=== PATIENT | male | born 2000 | race Caucasian/White ===

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

== ENCOUNTER 2019-01-19 21:28 | Emergency (ER) ==
[~2019-01-19] VITALS: Ht 172.7 cm; Wt 68.0 kg
--- NOTE | 2019-01-19 21:43 | NUR ---
PATIENT CAME IN , AMBULATED TO BED C/O PAIN/EDEMA TO LEFT FOOT/ANKLE. SEEN BY DIRECTOR TEEN POST, MU, PATIENT TWISTED ANKLE WHILE RUNNING C/O PAIN 04/08. PT RECEIVED ICE PACK. ELEVATED LEFT FOOT ON PILLOW.
[2019-01-19] MEDS ORDERED: IBUPROFEN 600 MG TABLET PO ONE ×2 (21:54→22:00)
--- NOTE | 2019-01-19 23:15 | NUR ---
Patient discharged to home in stable condition. Written and verbal after care instructions given. Patient verbalizes understanding of instruction. PT REC'D AND TIMO WRAP TO LT FOOT/ANKLE AND CRUTCHES. Crutches dispensed. Pt instructed on proper use of crutches. Patient able to demonstrate correct use of crutches. PT IS DRIVING HOME, BUT WANTS AN ORTHO SHOE. Nemo DOBBINS NP NOTIFIED.
--- NOTE | 2019-01-19 23:34 | NUR ---
PT WANTED AN ORTHO SHOE. NURSING SUP TO GET THE SHOE FROM [facility].
--- NOTE | 2019-01-19 23:55 | NUR ---
PT LEFT VIA CRUTCHES.
[2019-01-19 23:57] VITALS: BP 120/78
== END 2019-01-19 23:57 | disposition home or self-care (01) ==
LOC: ER 21:29
DX: S90.32XA Contusion of left foot, initial encounter (principal); F84.0 Autistic disorder; X50.1XXA Overexertion from prolonged static or awkward postures, initial encounter; Y93.02 Activity, running; Y92.89 Other specified places as the place of occurrence of the external cause; Y99.8 Other external cause status
CPT/HCPCS: 73630-TC

== ENCOUNTER 2019-03-03 11:53 | Emergency (ER) | payer MEDICAID ==
[~2019-03-03] VITALS: Ht 175.3 cm; Wt 67.6 kg
[2019-03-03 12:11] VITALS: BP 115/82
[2019-03-03] MEDS ORDERED: KETOROLAC TROMETHAMINE INJ 30 MG/ML VIAL IV ONE (12:30)
[2019-03-03] MEDS ORDERED: ONDANSETRON HCL/PF 4 MG/2 ML VIAL IVP ONE (12:30)
[2019-03-03] MEDS ORDERED: IV NS 0.9% 1,000 ML BAG IV ONE (12:30)
[2019-03-03] MEDS ORDERED: KETOROLAC TROMETHAMINE 15 MG/ML VIAL ONE (12:45)
[2019-03-03] MEDS ORDERED: ONDANSETRON HCL/PF 4 MG/2 ML VIAL ONE (12:45)
== END 2019-03-03 14:27 | disposition home or self-care (01) ==
LOC: ER 11:55
DX: A08.4 Viral intestinal infection, unspecified (principal); R11.2 Nausea with vomiting, unspecified; F84.0 Autistic disorder
CPT/HCPCS: 96361; 96374; 96375; 99283; J1885; J2405; J7030

== ENCOUNTER 2019-03-03 17:11 | Emergency (ER) | payer MEDICAID ==
[~2019-03-03] VITALS: Ht 172.7 cm; Wt 66.7 kg
--- NOTE | 2019-03-03 17:30 | NUR ---
BB family to ER for nausea, vomiting, and diarrhea x 1 day. Patient a/o2-3, breathing even and unlabored, mom at bedside, attached to the monitor. no distress noted. waiting for md pabon.
[2019-03-03 17:59] LABS: BASOPHILS % (AUTO) 0.1 % (0.0-2.0); EOSINOPHILS % (AUTO) 0.1 % (0.0-6.0); HEMATOCRIT 48 % (39-51); HEMOGLOBIN 16.6 g/dL (13.5-17.5); LYMPHOCYTES # (AUTO) 0.2 /CMM (0.8-4.8); LYMPHOCYTES % (AUTO) 2.7 % (20.0-44.0); MEAN CORPUSCULAR HGB CONC 34 g/dl (31.0-36.0); MEAN CORPUSCULAR VOLUME 90 fL (80-96); MONOCYTES # (AUTO) 0.4 /CMM (0.1-1.30); MONOCYTES % (AUTO) 6.1 % (2.0-12.0); NEUTROPHILS # (AUTO) 6.7 /CMM (1.8-8.9); PLATELET COUNT (AUTO) 124 /CMM (150-450); RED BLOOD CELL COUNT(AUTO) 5.32 MIL/uL (4.5-6.0); WHITE BLOOD COUNT (AUTO) 7.3 K/uL (4.3-11.0)
[2019-03-03] MEDS ORDERED: IV NS 0.9% 1,000 ML BAG IV ONE ×2 (18:00→20:30)
[2019-03-03] MEDS ORDERED: KETOROLAC TROMETHAMINE 15 MG/ML VIAL ONE (18:00)
[2019-03-03] MEDS ORDERED: ONDANSETRON HCL/PF 4 MG/2 ML VIAL IVP ONE (18:00)
[2019-03-03] MEDS ORDERED: ONDANSETRON HCL/PF 4 MG/2 ML VIAL ONE (18:00)
[2019-03-03] MEDS ORDERED: KETOROLAC TROMETHAMINE INJ 30 MG/ML VIAL IV ONE (18:00)
[2019-03-03 18:07] LABS: CALCIUM, SERUM 8.4 mg/dL (8.5-10.1); POTASSIUM 3.9 mmol/L (3.5-5.1)
[2019-03-03 18:12] LABS: ALBUMIN 3.9 g/dL (3.4-5.0); BILIRUBIN,DIRECT 0.1 mg/dL (0.0-0.2)
--- NOTE | 2019-03-03 19:13 | NUR ---
PT RECEIVED FROM [facility] FOR [facility]. COLLECTED URINE FROM PT AND SENT TO LAB.
[2019-03-03 19:18] LABS: APPEARANCE,URINE Slightly Cloudy (CLEAR); BILIRUBIN,URINE SMALL (NEGATIVE); BLOOD, URINE Negative Ery/uL (NEGATIVE); COLOR,URINE Dark (YELLOW); KETONES,URINE 40 (NEGATIVE); LEUKOCYTE ESTERASE ,URINE Negative (NEGATIVE); NITRITE, URINE Negative (NEGATIVE); PH,URINE 5.5 (5.0-8.0); PROTEIN,URINE Trace mg/dl (NEGATIVE); UGLUCOSE Negative (NEGATIVE)
[2019-03-03 19:43] LABS: BACTERIA,URINE Moderate /HPF (None Seen); RBC,URINE 0-2 /HPF (0-2); SQUAMOUS EPITHELIAL CELL,UR Rare /HPF (None Seen)
[2019-03-03 19:44] LABS: WBC,URINE 0-2 /HPF (0-3)
--- NOTE | 2019-03-03 22:31 | NUR ---
Og juan in [facility] - 03/03/19 at 2232 by MARC Patient discharged to home in stable condition w/ grandmother. Written and verbal after care instructions give to pt and grandmother. Patient verbalizes understanding of instruction.
--- NOTE | 2019-03-03 22:31 | NUR ---
Patient discharged to home in stable condition w/ grandmother. Written and verbal after care instructions give to pt and grandmother. Patient verbalizes understanding of instruction.
--- NOTE | 2019-03-03 22:32 | NUR ---
Patient discharged to home in stable condition w/ grandmother. Written and verbal after care instructions give to pt and grandmother. Patient verbalizes understanding of instruction. IV removed. Catheter intact and site benign. Pressure and 4x4 applied to site. No bleeding noted.Pt ambulatory with a steady gait
[2019-03-03 22:33] VITALS: BP 121/65
== END 2019-03-03 22:33 | disposition home or self-care (01) ==
LOC: ER 17:13
DX: A08.39 Other viral enteritis (principal); R11.2 Nausea with vomiting, unspecified; F84.0 Autistic disorder
CPT/HCPCS: 36415; 74176; 80048; 80076; 81001; 83690; 85025; 87040 ×2; 87086; 96361; 96374; 96375; 99284; J1885; J2405; J7030 ×2; 81000-TC

== ENCOUNTER 2020-04-16 02:00 | Emergency (ER) | payer MEDICAID, OTHER ==
[~2020-04-16] VITALS: Ht 170.2 cm; Wt 63.5 kg
[2020-04-16] MEDS ORDERED: MORPHINE SULFATE INJ 4 MG/ML DISP.SYRIN ONE (02:10)
[2020-04-16] MEDS ORDERED: ONDANSETRON HCL/PF 4 MG/2 ML VIAL ONE (02:10)
--- NOTE | 2020-04-16 02:12 | NUR ---
YARONRA [id number] FROM HOME FOR C/O H/A, AND ABD PAIN FOR THE PAST FEW HOURS. +N/V/D. -DYSURIA OR HEMATURIA. PT WAS PLACED IN BED 7 ON MONITOR,
--- NOTE | 2020-04-16 02:18 | NUR ---
LAB AT BED SIDE
[2020-04-16 02:24] LABS: BASOPHILS % (AUTO) 0.3 % (0.0-2.0); EOSINOPHILS % (AUTO) 0.7 % (0.0-6.0); HEMATOCRIT 50 % (39-51); HEMOGLOBIN 16.6 g/dL (13.5-17.5); LYMPHOCYTES # (AUTO) 1.1 /CMM (0.8-4.8); LYMPHOCYTES % (AUTO) 8.9 % (20.0-44.0); MEAN CORPUSCULAR HGB CONC 33 g/dl (31.0-36.0); MEAN CORPUSCULAR VOLUME 90 fL (80-96); MONOCYTES # (AUTO) 0.8 /CMM (0.1-1.30); MONOCYTES % (AUTO) 6.9 % (2.0-12.0); NEUTROPHILS % (AUTO) 83.2 % (43.0-81.0); PLATELET COUNT (AUTO) 146 /CMM (150-450); RED BLOOD CELL COUNT(AUTO) 5.52 MIL/uL (4.5-6.0)
[2020-04-16] MEDS ORDERED: ONDANSETRON HCL/PF - ER 4 MG/2 ML VIAL IV ONE (02:30)
[2020-04-16] MEDS ORDERED: IV NS 0.9% 1,000 ML IV ONE (02:30)
[2020-04-16] MEDS ORDERED: MORPHINE SULFATE INJ 2 MG/ML DISP.SYRIN IV ONE (02:30)
--- NOTE | 2020-04-16 02:36 | NUR ---
URINE SENT TO LAB
[2020-04-16 02:38] LABS: ALBUMIN 4.5 g/dL (3.4-5.0); BILIRUBIN,DIRECT 0.1 mg/dL (0.0-0.2); BILIRUBIN,TOTAL 0.6 mg/dL (0.2-1.0); CALCIUM, SERUM 9.3 mg/dL (8.5-10.1); POTASSIUM 4.2 mmol/L (3.5-5.1); TOTAL PROTEIN, SERUM 7.9 g/dL (6.4-8.2)
[2020-04-16 02:53] LABS: APPEARANCE,URINE CLEAR (CLEAR); BILIRUBIN,URINE NEGATIVE (NEGATIVE); BLOOD, URINE NEGATIVE Ery/uL (NEGATIVE); COLOR,URINE YELLOW (YELLOW); KETONES,URINE NEGATIVE (NEGATIVE); LEUKOCYTE ESTERASE ,URINE NEGATIVE (NEGATIVE); NITRITE, URINE NEGATIVE (NEGATIVE); PROTEIN,URINE NEGATIVE (NEGATIVE); UGLUCOSE NEGATIVE (NEGATIVE); UROBILINOGEN,URINE 0.2 EU/dL (0.2)
--- NOTE | 2020-04-16 03:44 | NUR ---
Patient discharged to home in stable condition. Written and verbal after care instructions given. Patient verbalizes understanding of instruction.IV removed. Catheter intact and site benign. Pressure and 4x4 applied to site. No bleeding noted.
[2020-04-16 05:16] VITALS: BP 121/63
== END 2020-04-16 05:17 | disposition home or self-care (01) ==
LOC: ER 02:02
DX: R10.9 Unspecified abdominal pain (principal); R11.2 Nausea with vomiting, unspecified
CPT/HCPCS: 36415; 80048; 80076; 81001; 83690; 85025; 96361; 96374; 96375; 99284; J2270; J2405; J7030; 81000-TC

== ENCOUNTER 2020-06-03 21:50 | Emergency (ER) | payer MEDICAID ==
[~2020-06-03] VITALS: Ht 172.7 cm; Wt 68.0 kg
[2020-06-03 21:53] VITALS: BP 141/88
--- NOTE | 2020-06-03 22:08 | NUR ---
PATIENT CAME TO ER TO BED 2 C/O RIGHT EXTENSOR BREVIS REGION. PATIENT STATES, "I STRAINED MY ANKLE WHILE RUNNING TO MY MOTHER'S ROOM". SWELLING NOTED IN THE AREA. PATIENT IS AAOX4. NO SOB. BREATHING EVENLY AND UNLABORED ON ROOM AIR.
--- NOTE | 2020-06-03 22:13 | NUR ---
XRAY AT BEDSIDE.
[2020-06-03] MEDS ORDERED: IBUPROFEN 600 MG TABLET ONE (22:23)
[2020-06-03] MEDS ORDERED: IBUPROFEN 600 MG TABLET PO ONE (22:30)
--- NOTE | 2020-06-03 22:47 | NUR ---
PATIENT PROVIDED WITH WALKING FLAT SHOES, CRUTCHES, AND TIMO BANDAGEING ON THE RIGHT FOOT. PATIENT'S GAIT TRAINING WAS SUCCESSFUL.
--- NOTE | 2020-06-03 22:48 | NUR ---
Patient discharged to home in stable condition. Written and verbal after care instructions given. Patient verbalizes understanding of instruction.
== END 2020-06-03 22:50 | disposition home or self-care (01) ==
LOC: ER 21:52
DX: S93.691A Other sprain of right foot, initial encounter (principal); X50.1XXA Overexertion from prolonged static or awkward postures, initial encounter; Y93.89 Activity, other specified; Y92.89 Other specified places as the place of occurrence of the external cause; Y99.8 Other external cause status
CPT/HCPCS: 73630-TC

== ENCOUNTER 2021-12-15 13:26 | Emergency (ER) | payer MEDICAID ==
[~2021-12-15] VITALS: Ht 172.7 cm; Wt 74.4 kg
--- NOTE | 2021-12-15 13:26 | NUR ---
TO ER BED 11. BIB SELF C/O FEVER AND HEADACHE STARTED 2 HRS SAFETY INTERN. PT ORAL TEMP WAS 99.4. PT IS A&OX4. VITALS WITHIN NORMAL LIMITS. BREATHING EVEN AND UNLABORED.
[2021-12-15] MEDS ORDERED: IBUPROFEN 600 MG TABLET ONE (14:15)
[2021-12-15] MEDS ORDERED: ACETAMINOPHEN ES 500 MG TABLET ONE (14:15)
--- NOTE | 2021-12-15 14:20 | NUR ---
ANGELICA COLLECTED AND SENT
[2021-12-15] MEDS ORDERED: ACETAMINOPHEN ES 500 MG TABLET PO ONE (14:30)
[2021-12-15] MEDS ORDERED: IBUPROFEN 600 MG TABLET PO ONE (14:30)
[2021-12-15] MEDS ORDERED: IBUP-1957 PO (15:26)
--- NOTE | 2021-12-15 15:57 | NUR ---
Patient discharged to home in stable condition. Written and verbal after care instructions given. Patient verbalizes understanding of instruction.
[2021-12-15 15:58] VITALS: BP 126/78
== END 2021-12-15 15:58 | disposition home or self-care (01) ==
LOC: ER 13:39
DX: B34.9 Viral infection, unspecified (principal); Z20.822 Contact with and (suspected) exposure to COVID-19
CPT/HCPCS: 87426; 99283; C9803